=== PATIENT | male | born 1960 | race Caucasian/White ===

== ENCOUNTER → 2021-11-11 07:32 | Outpatient (CLI) | payer OTHER, SELFPAY ==
--- NOTE | ~2021-11-11 | US_ITS ---
EXAMINATION: US abdomen complete EXAM DATE: 11/11/2021 08:28 INDICATION: R10.11 - Right upper quadrant pain. TECHNIQUE: Multiple grayscale and Doppler images of the complete abdomen were obtained (by a technolo gist who performed the scan) and subsequently reviewed. There is no prior study for comparison. FINDINGS: The abdominal aorta is normal in caliber. Visualized portion IVC is patent. The pancreatic head a nd body are normal in appearance. The pancreatic tail is not visualized. There is echogenic liver parenchyma, hepatic steatosis. There are no focal liver lesions identified. There is no evidence of intrahepatic biliary duct dilation. Portal venous flow was seen in the he patopedal, normal direction and has normal Doppler waveform. Common bile duct measures 3 mm, which is normal. The gallbladder wall is normal in thickness, with ex pected amount of distention. No sonographic evidence of pericholecystic fluid. Small dependent focu s without shadowing, most likely a 6 mm gallbladder polyp. Technologist performing exam reports alysa ent did not demonstrate sonographic Ballard's sign. Please note that this sign is less reliable in pa tients who have received pain medication. Right kidney: There is normal contour and echogenicity. It measures 13.0 x 5.7 x 6.9 centimeters. T here is a 1.6 cm cyst. There is no hydronephrosis. Left kidney: There is normal contour and echogenicity. It measures 11.6 x 6.1 x 5.9 centimeters. Th ere is a 1.7 cm cystic lesion, may have some echogenic soft tissue in the middle. Can't totally exclu de cystic renal cell cancer. There is no hydronephrosis. The spleen measures 9.5 centimeters and is morphologically normal. IMPRESSION: 1. Indeterminate left renal lesion for which a pre and postcontrast CT or MRI abdomen is recommended . 2. Gallbladder debris and small echogenic focus most likely polyp, not likely clinically significant . 3. Hepatic steatosis. Reviewed, dictated and finalized at location A. IMPRESSION: 1. Indeterminate left renal lesion for which a pre and postcontrast CT or MRI abdomen is recommended. 2. Gallbladder debris and small echogenic focus most likely polyp, not likely clinically significant. 3. Hepatic steatosis.
== END ==
PROVIDERS: PCP Nurse Practitioner; Visit Provider Nurse Practitioner
DX: R10.11 Right upper quadrant pain (principal); K76.0 Fatty (change of) liver, not elsewhere classified; N28.89 Other specified disorders of kidney and ureter
CPT/HCPCS: 76700

== ENCOUNTER 2021-11-19 14:44 | Outpatient (CLI) | payer OTHER, SELFPAY ==
--- NOTE | ~2021-11-19 | CT_ITS ---
EXAMINATION: CT abdomen pelvis wo/w con DATE: 11/19/2021 15:22 INDICATION: Cyst of the kidney TECHNIQUE: Computed tomography (CT) of the abdomen and pelvis was performed without and with 100 mL O mnipaque-350 intravenous contrast. Automated exposure control and iterative reconstruction technique were employed. The dose-length product was 1253.28 mGy-cm. COMPARISON: Ultrasound dated 11/11/2021 FINDINGS: Lung bases are clear. Heart size is normal. No pericardial or pleural effusion. There are a few subce ntimeter low-attenuation cysts in the liver. Subtle approximately 5 mm nodular density along the nond ependent wall of the otherwise normal gallbladder which appears to correspond to the hypoechoic nodul e on the prior ultrasound suspicious for a gallbladder polyp. Pancreas, spleen and left adrenal gland are normal. 9 mm low-attenuation right adrenal adenoma. Bilateral low-attenuation nonenhancing renal cysts including the largest cysts at both kidneys which are exophytic measuring 1.7 cm on the left a nd 1.1 cm on the right. The former corresponds to the lesion of concern on prior ultrasound with no e vident internal solid enhancing component to suggest malignancy in the current study. There is mild c olonic diverticulosis with a sigmoid predominance. There is no adjacent inflammatory change to sugge st diverticulitis. The appendix is not visualized. No pericecal inflammatory change to suggest acute appendicitis. Prostatomegaly. Bladder is unremarkable. Very small fat-containing left inguinal hernia . No free intraperitoneal gas or fluid. No pathologically enlarged abdominal or pelvic lymphadenopath y. Severe lumbar spondylosis. Macroscopic fat attenuation 1.4 cm lytic lesion at L3 most consistent w ith a hemangioma. IMPRESSION: 1. Bilateral nonenhancing renal cysts including the 1.7 cm exophytic lesion of concern at the lower p ole of the left kidney seen on prior ultrasound. 2. Redemonstration of a 5 mm likely benign gallbladder polyp. 3. Mild diverticulosis. 4. Very small fat-containing left inguinal hernia. Reviewed, dictated and finalized at location A. IMPRESSION: 1. Bilateral nonenhancing renal cysts including the 1.7 cm exophytic lesion of concern at the lower pole of the left kidney seen on prior ultrasound. 2. Redemonstration of a 5 mm likely benign gallbladder polyp. 3. Mild diverticulosis. 4. Very small fat-containing left inguinal hernia.
[2021-11-19 15:10] LABS: Estimated Glomerular Filt Rate > 60
== END 2021-11-19 14:45 ==
PROVIDERS: PCP Family Medicine; Visit Provider Nurse Practitioner
DX: N28.1 Cyst of kidney, acquired (principal); R63.5 Abnormal weight gain; K57.30 Diverticulosis of large intestine without perforation or abscess without bleeding; K40.90 Unilateral inguinal hernia, without obstruction or gangrene, not specified as recurrent
CPT/HCPCS: 74178; Q9967